=== PATIENT | female | born 1955 | race Two or more races ===

== ENCOUNTER 2018-01-19 23:36 | Emergency (ER) | payer SELFPAY ==
[~2018-01-19] VITALS: Ht 154.9 cm; Wt 75.4 kg
[2018-01-19 23:40] VITALS: BP 155/63
== END 2018-01-20 00:55 | disposition left against medical advice (07) ==
LOC: ER 23:36
DX: Z53.21 Procedure and treatment not carried out due to patient leaving prior to being seen by health care provider (principal); E78.00 Pure hypercholesterolemia, unspecified